=== PATIENT | female | born 1985 | race Hispanic/Latino ===

== ENCOUNTER → 2023-12-04 07:52 | Outpatient (REF) | payer OTHER, SELFPAY ==
[2023-12-04 09:10] LABS: Glycohemoglobin (HgbA1c) 5.9 % (4.0-5.6)
== END ==
LOC: REG 07:52
PROVIDERS: ATTENDING PHYSICIAN Nurse Practitioner Adult Health
DX: R73.03 Prediabetes (principal)
CPT/HCPCS: 36415; 83036

== ENCOUNTER 2024-03-24 07:08 | Emergency (ER) | payer SELFPAY ==
[2024-03-24 07:20] VITALS: BP 138/73
--- NOTE | 2024-03-24 07:45 | ED.SKININJ ---
HPI-Injury
General
Chief Complaint: Eye Problems
Source: patient
Exam Limitations: none
Time Seen by Provider: 03/24/24 07:24
Nursing documentation reviewed up to this point in time: agreed with
Travel History
Have you had any contact with someone who has COVID-19?: No
Do you have any symptoms of coronavirus? Fever > 100 degrees, chills, cough, shortness of breath, sore throat, loss of taste or smell, muscle aches, or headache?: No
History of Present Illness-Injury
Initial Injury comments:
38-year-old female with no significant past medical history states 5 days ago she developed redness and itching of the left eye, she had some eyedrops leftover from [place] of chloraphenicol plus dexamethasone which she used in the eye started to
improve until 2 days later when it got worse again. She presents with mild redness, watery discharge, crusting around the eye and infraorbital mild swelling. She denies pain with movement of the eye or any eyeball. She denies change in vision.
She denies headache or fever.
Past History
Past History
ED Past Surgical History: None
Social History
Tobacco: Non-smoker
Alcohol: None
Drug: None
Personal:
Living: with family
Employment: Other (Noncontributory)
Family History
Family History: Diabetes
Review of Systems
Review of Systems
Allergies reviewed?: Yes
All Other Systems: ROS reviewed and negative except as documented in HPI and ROS
Constitutional: Denies fever
EENT: Reports other (Crusty, swelling, redness left eye)
ABD/GI: Denies abdominal pain or nausea
Musculoskeletal: Reports no symptoms
Neurological: Reports no symptoms
Phy Exam
Physical Exam
Physical Exam:
PHYSICAL EXAMINATION:
General: no apparent distress, not acutely ill
Neuro: alert and oriented.
ENT: Left eye infraorbital area is mildly swollen and tender, there is a watery discharge from the eye sclera is mildly injected, there is crusty debris on the lower lid, no pain with eye movement or palpation of the eyeball.
EOMs intact.
Psychiatric: well kept. interactive and cooperative
Musculoskeletal: Moves with ease
Skin: Warm, pink.
Course
Orders/Labs/Results
Orders:
Orders
03/24/24 07:24
Visual Acuity- Treatment ONCE
Vital Signs
Initial and Last Documented VS:
Initial Vital Signs
Temp Pulse Resp BP Pulse Ox
98.0 F 56 16 138/73 98
03/24/24 07:20 03/24/24 07:20 03/24/24 07:20 03/24/24 07:20 03/24/24 07:20
Last Documented Vital Signs
Temp Pulse Resp BP Pulse Ox
98.0 F 56 16 138/73 98
03/24/24 07:20 03/24/24 07:20 03/24/24 07:20 03/24/24 07:20 03/24/24 07:20
MDM/Problems Addressed
Differential Diagnosis Includes:
Bacterial versus viral conjunctivitis. Preseptal cellulitis, orbital cellulitis
MDM/Problems Addressed:
38-year-old female with no significant past medical history states 5 days ago she developed redness and itching of the left eye, she had some eyedrops leftover from [place] of chloramphenicol plus dexamethasone which she used in the eye started to
improve until 2 days later when it got worse again. She presents with mild redness, watery discharge, crusting around the eye and infraorbital mild swelling. She denies pain with movement of the eye or any eyeball. She denies change in vision.
She denies headache or fever.
She states she is starting to feel mild symptoms in opposite eye, that eye appears clear, without signs of conjunctivitis
Clearly bacterial conjunctivitis, no sign of cellulitis
Plan: Stop current eye drops, rx for Gentamicin 3% eye drops sent to her pharmacy.
Pharmacy called no Gentamicin eye drops, rx changed to Bleph 10
She will apply to opposite eye also if symptoms progress
*Critical Care Note
Total Time (30-74mins, 75-104mins- exclusive of procedures): Not Applicable
ED Attending Note
-
Portions of this chart may have been created with voice recognition software.� Occasional wrong word or��sound alike� substitutions may have occurred due to the inherent limitations of voice recognition software.
Discharge Plan
Departure
Patient Disposition: Home (Routine Discharge)
Date of Disposition: 03/24/24
Time of Disposition: 08:07
Patient with high blood pressure during this ER visit?: No
Condition: Good
Discharge Problem:
Acute conjunctivitis of left eye
Instructions: Conjunctivitis (Pinkeye) (DC), How to Use Eye Drops
Prescriptions:
New
gentamicin 0.3 % drops
2 drp ophthalmic (eye) Q4H Qty: 5 0RF
No Action
No Meds
amoxicillin-pot clavulanate 1 TABLET tablet
1 tab PO Q12 Qty: 14 0RF
doxycycline hyclate 100 MG capsule
100 mg PO Q12 Qty: 14 0RF
albuterol sulfate 1 PUFF HFA aerosol inhaler
1 - 2 puff inhalation .Q4-6HPRN PRN (Reason: WHEEZING) Qty: 1 0RF
ondansetron 4 MG tablet,disintegrating
4 mg PO TIDPRN PRN (Reason: NAUSEA) Qty: 10 0RF
amoxicillin-pot clavulanate 1 TABLET tablet
1 tab PO Q12 Qty: 14 0RF
Activity Restrictions/Additional Instructions:
As we discussed, I sent a prescription to your pharmacy for antibiotic eyedrops.
See your provider at the [facility] or at your eye doctor's office if you are not much improved within 3 days.
Return here immediately for fever, worsening swelling or redness around the eye, change in vision or feeling worse in any way.
Tylenol or ibuprofen as needed for pain.
Interventions
Interventions:
*Risk Screen - Suicide Last Done: 03/24/24 08:27
*General Assessment Last Done: 03/24/24 08:27
*Neglect/Abuse Screening Last Done: 03/24/24 08:27
ED- Fall Risk Assessment Last Done: 03/24/24 08:27
*ED COVID-19 Vaccine History Last Done: 03/24/24 07:20
*Nursing Disposition Last Done: 03/24/24 08:29
Discharge Date and Time
Discharge Date/Time: 03/24/24 08:30
Print Language: JAPANESE
== END 2024-03-24 08:30 | disposition home or self-care (01) ==
LOC: EMR 07:08
PROVIDERS: EMERGENCY PHYSICIAN Emergency Medicine
DX: H10.32 Unspecified acute conjunctivitis, left eye (principal)
CPT/HCPCS: 99283

== ENCOUNTER → 2024-06-28 06:39 | Outpatient (REF) | payer OTHER, SELFPAY ==
[2024-06-28 07:28] LABS: Hematocrit 35.8 % (37.0-47.0); Hemoglobin 12.3 g/dL (12.0-16.0); Mean Corp Hgb Conc. 34.4 g/dL (33.0-37.0); Mean Corpuscular Hgb 32.5 pg (27.0-31.0); Mean Corpuscular Volume 94.5 fL (81.0-99.0); Mean Platelet Volume 9.9 fL (7.4-10.4); Platelet Count 300 10^3/uL (130-400); Red Blood Cell Count 3.79 10^6/uL (4.20-5.40); Red Cell Dist. Width 13.7 % (11.5-14.5); White Blood Cell Count 7.7 10^3/uL (4.8-10.8)
[2024-06-28 08:01] LABS: ALT (SGPT) 27 U/L (0-35); AST (SGOT) 29 U/L (14-36); Albumin 4.4 g/dl (3.5-5.0); Alkaline Phosphatase 83 U/L (38-126); Blood Urea Nitrogen 12 mg/dl (7-17); Calcium 9.6 mg/dl (8.4-10.2); Carbon Dioxide 22 mmol/L (22-30); Chloride 105 mmol/L (98-107); Glucose 113 mg/dl (70-99); HDL Cholesterol 70 mg/dl; LDL Cholesterol, Calculated 129 mg/dl; Potassium 4.8 mmol/L (3.5-5.1); Sodium 141 mmol/L (135-145); Total Bilirubin 0.8 mg/dl (0.2-1.3); Total Cholesterol 226 mg/dl (50-199); Total Protein 7.2 g/dl (6.3-8.2); Triglyceride 138 mg/dl (10-149); Very Low Density Lipoprotein 27 mg/dl (0-30); eGFR > 60.00
[2024-06-28 09:40] LABS: Glycohemoglobin (HgbA1c) 5.6 % (4.0-5.6)
== END ==
LOC: CLINIC 06:39
PROVIDERS: ATTENDING PHYSICIAN Nurse Practitioner Adult Health
DX: R73.03 Prediabetes (principal); E78.2 Mixed hyperlipidemia; D50.0 Iron deficiency anemia secondary to blood loss (chronic)
CPT/HCPCS: 36415; 80053; 80061; 83036; 85027

== ENCOUNTER → 2024-11-01 08:28 | Outpatient (REF) | payer OTHER, SELFPAY ==
[2024-11-01 10:19] LABS: Vitamin D, 25-OH*** 33.9 ng/mL (30-80)
== END ==
LOC: CLINIC 08:28
PROVIDERS: ATTENDING PHYSICIAN Nurse Practitioner Adult Health
DX: E55.9 Vitamin D deficiency, unspecified (principal)
CPT/HCPCS: 36415; 82306

== ENCOUNTER → 2025-01-14 07:55 | Outpatient (REF) | payer OTHER, SELFPAY ==
[2025-01-14 10:14] LABS: Vitamin D, 25-OH*** 34.7 ng/mL (30-80)
== END ==
LOC: REG 07:55
PROVIDERS: ATTENDING PHYSICIAN Nurse Practitioner Adult Health
DX: E55.9 Vitamin D deficiency, unspecified (principal)
CPT/HCPCS: 36415; 82306

== ENCOUNTER → 2025-02-12 16:25 | Outpatient (REF) | payer SELFPAY | LOC: WDC 16:25 | PROVIDERS: ATTENDING PHYSICIAN Nurse Practitioner Adult Health | DX: Z12.31 Encounter for screening mammogram for malignant neoplasm of breast (principal) | CPT/HCPCS: 77063; 77067 ==

== ENCOUNTER → 2025-07-05 07:50 | Outpatient (REF) | payer OTHER, SELFPAY ==
[2025-07-05 08:45] LABS: Hematocrit 36.6 % (37.0-47.0); Hemoglobin 12.3 g/dL (12.0-16.0); Mean Corp Hgb Conc. 33.6 g/dL (33.0-37.0); Mean Corpuscular Volume 95.1 fL (81.0-99.0); Platelet Count 283 10^3/uL (130-400); Red Cell Dist. Width 12.8 % (11.5-14.5)
[2025-07-05 09:28] LABS: ALT (SGPT) 38 U/L (0-35); AST (SGOT) 32 U/L (14-36); Albumin 4.6 g/dl (3.5-5.0); Alkaline Phosphatase 61 U/L (38-126); Blood Urea Nitrogen 11 mg/dl (7-17); Calcium 9.3 mg/dl (8.4-10.2); Carbon Dioxide 25 mmol/L (22-30); Chloride 107 mmol/L (98-107); Glucose 110 mg/dl (70-99); HDL Cholesterol 82 mg/dl; LDL Cholesterol, Calculated 129 mg/dl; Potassium 4.3 mmol/L (3.5-5.1); Sodium 139 mmol/L (135-145); Total Protein 7.7 g/dl (6.3-8.2); Very Low Density Lipoprotein 21 mg/dl (0-30); eGFR > 60.00
[2025-07-05 10:22] LABS: Glycohemoglobin (HgbA1c) 5.7 % (4.0-5.6)
== END ==
LOC: CLINIC 07:50
PROVIDERS: ATTENDING PHYSICIAN Nurse Practitioner Adult Health
DX: R73.03 Prediabetes (principal); Z00.00 Encounter for general adult medical examination without abnormal findings
CPT/HCPCS: 36415; 80053; 80061; 83036; 84443; 85027

== ENCOUNTER → 2025-07-09 09:13 | Outpatient (REF) | payer OTHER, SELFPAY | LOC: CLINIC 09:13 | PROVIDERS: ATTENDING PHYSICIAN Nurse Practitioner Adult Health | DX: Z12.4 Encounter for screening for malignant neoplasm of cervix (principal) | CPT/HCPCS: 87624 ==